=== PATIENT | female | born 1975 | race African-American/Black ===

== ENCOUNTER → 2023-05-30 | Outpatient (CLI) | payer OTHER | LOC: M WHC 10:10 | PROVIDERS: ATTEND Family Medicine | DX: Z12.31 Encounter for screening mammogram for malignant neoplasm of breast (principal) ==

== ENCOUNTER → 2023-06-24 | Outpatient (CLI) | payer OTHER | LOC: M WHC 09:35 | PROVIDERS: ATTEND Family Medicine | DX: Z12.31 Encounter for screening mammogram for malignant neoplasm of breast (principal) | CPT/HCPCS: 77065; G0279 ==

== ENCOUNTER → 2024-04-27 | Outpatient (CLI) | payer OTHER ==
[~2024-04-27] MED LIST: GASTROGRAFIN SOLUTION 30ML As Ordered ONE; ISOVUE-370 76% 100ML VIAL As Ordered ONE; LOSA50TA28 PO; METF-838 PO
== END ==
LOC: M RAD 11:07
PROVIDERS: ATTEND Internal Medicine Medical Oncology
DX: C20 Malignant neoplasm of rectum (principal)
CPT/HCPCS: 74177; Q9963; Q9967

== ENCOUNTER → 2024-07-14 | Outpatient (CLI) | payer OTHER ==
[~2024-07-14] MED LIST changes: -GASTROGRAFIN SOLUTION 30ML As Ordered ONE; -ISOVUE-370 76% 100ML VIAL As Ordered ONE; +ISOVUE-370 76% 100ML VIAL ONE
== END ==
LOC: M PLAIMG 10:23
PROVIDERS: ATTEND Family Medicine
DX: D44.9 Neoplasm of uncertain behavior of unspecified endocrine gland (principal); R22.1 Localized swelling, mass and lump, neck; E04.1 Nontoxic single thyroid nodule
CPT/HCPCS: 70492; 71270; Q9967

== ENCOUNTER → 2024-09-03 | Outpatient (CLI) | payer OTHER ==
[~2024-09-03] MED LIST changes: -ISOVUE-370 76% 100ML VIAL ONE
== END ==
LOC: M SOG 07:50
PROVIDERS: ATTEND Orthopaedic Surgery
DX: M54.2 Cervicalgia (principal); M25.531 Pain in right wrist; M25.532 Pain in left wrist